=== PATIENT | female | born 1945 | race Caucasian/White ===

== ENCOUNTER 2020-08-08 11:23 | Inpatient (IN) | payer MEDICARE, MEDICAID, SELFPAY ==
[2020-08-08] VITALS (9 sets, daily range): BP systolic 103–146; BP diastolic 50–79; PULSE 63–82; RESP 12–20; TEMP 34.3–36.9; O2SAT 80–100; BMI 28.8
--- NOTE | 2020-08-08 12:16 | ECG_ITS ---
Test Reason : WEAKNESS Blood Pressure : / mmHG Vent. Rate : 077 BPM Atrial Rate : 077 BPM P-R Int : 182 ms QRS Dur : 098 ms QT Int : 374 ms P-R-T Axes : 043 027 086 degrees QTc Int : 423 ms Normal sinus rhythm Nonspecific ST and T wave abnormality Abnormal ECG When compared with ECG of 12-MAY-2020 12:29, No significant change was found Referred By: Kinza Macias Electronically Signed By:SKY REAVES MD
--- NOTE | 2020-08-08 12:16 | XR_ITS ---
EXAMINATION: XR CHEST CLINICAL INFORMATION: Hypoxia COMPARISON: None TECHNIQUE: Frontal view of the chest was obtained. FINDINGS: The patient is slightly rotated into a left posterior oblique position. Lungs are hypoexpanded. There appears to be crowding of bronchovascular structures in both lungs. This interferes with evaluation of the interstitium. No overt interstitial abnormality. No consolidation, pleural effusion or pneumothorax. Cardiac silhouette is normal in size. Bones appear to be diffusely osteopenic. There is dextrocurvature of the thoracic spine. IMPRESSION: * Lungs are hypoinflated. * No evidence of pneumonia or congestive heart failure. * The pulmonary interstitium is suboptimally evaluated due to the degree of hypoinflation.
--- NOTE | 2020-08-08 12:16 | CT_ITS ---
EXAMINATION: CT HEAD WITHOUT CONTRAST CLINICAL INFORMATION: Altered mental status. Swelling. Difficulty eating. COMPARISON: None TECHNIQUE: Contiguous axial imaging was performed from the skull base to vertex without intravenous administration of contrast. This CT examination was performed using dose optimization techniques as appropriate, variously including the following: *Automated exposure control *Adjustment of mA and/or kV according to patient size (this includes techniques or standardized protocols for targeted exams where dose is matched to indication/reason for exam; i.e. extremities or head) *Use of iterative reconstruction technique DLP: 696 mGy-cm NOTE: This examination is not performed under the stroke protocol. FINDINGS: Atherosclerotic calcification of cavernous carotid arteries. No intracranial hemorrhage, extra-axial fluid collection, focal mass effect or midline shift. The bryant-white matter differentiation is maintained. No evidence of an acute major vascular territory infarction. 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 Mild atrophy of cerebral hemispheres is associated with commensurate prominence of the ventricles and sulci. No hydrocephalus. No acute abnormality involving the brainstem or cerebellar hemispheres. The cerebellar tonsils are in normal position. The calvarium is intact and the visualized paranasal sinuses are well aerated. Minimal left mastoid effusion. Temporomandibular joints are unremarkable. Lenses have been extracted from the globes of each orbit. IMPRESSION: * No hemorrhage or other acute intracranial pathology. * There is relatively diffuse hypoattenuation of supratentorial white matter, likely sequela of chronic, severe microangiopathy.
--- NOTE | 2020-08-08 12:24 | ED_ITS ---
HPI - General Adult General Chief complaint: General Medical Stated complaint: WEAKNESS Time Seen by Provider: 08/08/20 12:03 Source: other (caregiver) Mode of arrival: wheelchair History of Present Illness HPI narrative: 75-year-old female with a past medical history of DM, leukopenia, thrombocytopenia, COPD, cognitive impairment, GERD, pressure ulcer, chronic UTIs, [facility] since 7:15 a.m. with right-sided facial droop, difficulty swallowing / handling pills, and the lethargy. reportedly at baseline patient is interactive, confused, wheels herself around in wheelchair. Today not conversational/ speaking, staring off into space. Per caregiver from [facility] patient had similar episode last week where she was admitted to [facility], noted to be hypoxic for unknown reasons , and was at baseline a [facility] x1 week until today. Denies fever, nausea/vomiting, diarrhea History unobtainable from patient due to AMS Onset (ago): hour(s) Related Data Allergies Allergy/AdvReac Type Severity Reaction Status Date / Time No Known Allergies Allergy Unverified 07/15/20 19:51 [No Known Allergies*] Review of Systems Review of Systems: ROS unable to be obtained due to altered mental status Yes all other systems are reviewed and are negative PMFSH Past Medical History Source: old records reviewed Medical History (Updated 08/08/20 @ 12:10 by Simone Stokes) Diabetes 1.5, managed as type 2 High cholesterol TBI (traumatic brain injury) Ulcer, pressure Social History Social History Advance Directives: No Advance Directives Information Provided: Yes Physical Exam Vital Signs: Vital Signs: Vital Signs Temp Pulse Resp BP Pulse Ox 08/08/20 15:47 72 12 111/76 100 08/08/20 12:22 68 98 08/08/20 12:00 98.5 F 82 16 117/73 91 L Body Mass Index 28.8 Const: Other: uncooperative General: lethargic Orientation/consciousness: oriented to person and lethargic Limitations: altered mental status HENMT: Head: Yes normal to inspection Ears: hearing grossly normal bilaterally General nose exam: Normal external nose present Face and sinus: Yes normal facial exam Eyes: Other: unable to open the patient's eyes Neck: Neck: Yes normal visual inspection Resp: Effort & Inspection: normal respiratory effort and no stridor Auscultation: crackles ( bibasilar) Cardio: Rate: regular rate Heart sounds: S1 normal heart sound present and S2 normal heart sound present Peripheral pulses: Peripheral pulses 2+ throughout GI: Inspection: Yes normal to inspection Palpation (GI): Soft to palpation, Tenderness to palpation present (GI) in the LLQ, no guarding and not rigid Skin: Other: clean pressure ulcer noted to right heel. No surrounding cellulitis, fluctuance or induration Neuro: Other: does not follow all commands General: oriented to person and moves all extremities Gait exam (Neuro): Other gait observations present Motor exam (neuro): normal tone Extrem: General: Yes normal to inspection Course Course Course Narrative: -1323-- CBC at baseline, troponin 5.7> will obtain 3hr repeat -1404-- CXR showing hypoinflated lungs. No evidence of pneumonia or CHF -Lactate 1.8 - head CT without hemorrhage or acute intracranial pathology. - respiratory viral panel negative -1452-- obtain records from [facility]: Patient had brain MRI without acute findings. Valproic acid level was noted to be low. They question to if patient's presentation was possible postictal state versus a Remy's paralysis >> patient satting 94-95% on 2 L nasal cannula, due to hypoxia an unknown source of AMS will obtain CTA to rule out PE prior to admission - CTA without evidence of PE. Bilateral lower lobe bronchial wall thickening. Bibasilar dependent atelectasis. T9 compression fracture - UA with RBCs/not infected. Plan to admit for AMS Medical Decision Making [facility] Narrative Medical decision making narrative: 75-year-old female with a past medical history of DM, leukopenia, thrombocytopenia, COPD, cognitive impairment, GERD, pressure ulcer, chronic UTIs, [facility] since 7:15 a.m. with right-sided facial droop, difficulty swallowing / handling pills, and the lethargy. on exam satting 91% on room air, in no respiratory distress, bibasilar crackles noted, not following commands /lethargic. Concern for CVA vs infectious/metabolic etiology including viral syndrome / COVID-19 vs UTI. Rule out intra-abdominal process. lower concern for ACS low concern for severe sepsis at this time Plan: EKG, labs, UA, CXR, head CT, respiratory panel, anticipated admission Lab Data Result diagrams: 08/08/20 12:37 08/08/20 12:37 Labs: Lab Results 08/08/20 08/08/20 08/08/20 Range/Units 12:37 12:37 12:37 WBC 3.6 L (4.8-10.8) X10*3/uL RBC 3.46 L (4.20-5.50) X10*6/uL Hgb 10.9 L (12.0-16.0) g/dl Hct 36.1 L (37-47) % MCV 104.3 H (80-98) fL MCH 31.5 (27.0-33.0) pg MCHC 30.2 L (31.0-35.0) g/dl RDW 15.3 (11.0-16.0) % Plt Count 96 L (160-400) X10*3/uL MPV 10.8 (9.4-12.3) fL Immature Gran % (Auto) 1.1 H (0.0-0.4) % Neut % (Auto) 48.1 (45-73) % Lymph % (Auto) 37.5 (20-40) % [place] % (Auto) 9.9 (2-11) % Eos % (Auto) 3.1 (0-4) % Baso % (Auto) 0.3 (0-2) % Lymph # (Auto) 1.3 (1.2-4.9) X10*3/uL [place] # (Auto) 0.4 (0.1-1.2) X10*3/uL Eos # (Auto) 0.1 (0.0-0.4) X10*3/uL Baso # (Auto) 0.0 (0.0-0.2) X10*3/uL Abs Immat Gran (auto) 0.04 H (0.00-0.03) X10*3/uL Absolute Neuts (auto) 1.7 L (2.0-8.3) X10*3/uL Absolute Nucleated RBC 0.020 H (0.0-0.012) X10*3/uL Nucleated RBC % (auto) 0.6 H (0.0-0.2) /100WBC Smear Tech's Comments Not Reportable PT 11.9 (10.8-13.0) SEC INR 1.0 (0.9-1.1) Sodium 139 (135-145) mmol/L Potassium 5.2 H (3.3-5.1) mmol/l Chloride 102 (96-108) mmol/L Carbon Dioxide 28 (22-29) mmol/L Anion Gap 14 (12-20) BUN 15 (9-16) mg/dL Creatinine 0.97 (0.5-1.4) mg/dL Estim Creat Clear Calc 49.3 Estimated GFR 56 Random Glucose 120 H (60-115) mg/dL Lactic Acid (0.5-2.0) mmol/L Calcium 8.7 (8.4-10.2) mg/dL Magnesium 2.2 (1.6-2.6) mg/dL Ferritin 25 (10-250) ng/mL Total Bilirubin 0.3 (0.0-1.0) mg/dL Direct Bilirubin < 0.2 (0.0-0.5) mg/dL AST 22 (5-31) U/L ALT 20 (0-31) U/L Alkaline Phosphatase 92 (39-117) U/L Lactate Dehydrogenase 214 (122-220) U/L Troponin I High Sens (<3.5-17.0) ng/L B-Natriuretic Peptide (<100) pg/mL Total Protein 7.2 (6.5-8.0) g/dL Albumin 3.7 (3.5-5.0) g/dL Lipase 62 (8-78) U/L Urine Color Urine Appearance Urine pH (5.0-8.0) Ur Specific [place] (1.005-1.025) Urine Protein (NEG-TRACE) MG/DL Urine Glucose (UA) (NEG) MG/DL Urine Ketones (NEG) MG/DL Urine Blood (NEG) Urine Nitrite (NEG) Ur Leukocyte Esterase (NEG) Urine RBC (0) /HPF Urine WBC (0-4) /HPF Ur Squamous Epith Cells /LPF Urine Bacteria /LPF Respiratory Panel Killian Adenovirus (Rapid PCR) (Not Detect.) B.pert (TEM-PCR) (Not Detect.) B.parapertussis DNA PCR (Not Detect.) C. pneumoniae DNA (PCR) (Not Detect.) Coronavirus OC43 (PCR) (Not Detect.) Coronavirus HKU1 (PCR) (Not Detect.) Coronavirus 229E (PCR) (Not Detect.) Coronavirus NL63 (PCR) (Not Detect.) Human Metapneumovir PCR (Not Detect.) Influenza A (RT-PCR) (Not Detect.) Influenza B (RT-PCR) (Not Detect.) M. pneumoniae (PCR) (Not Detect.) Parainfluenza 1 (PCR) (Not Detect.) Parainfluenza 2 (PCR) (Not Detect.) Parainfluenza 3 (PCR) (Not Detect.) Parainfluenza 4 (PCR) (Not Detect.) RSV (PCR) (Not Detect.) Entero/Rhino (PCR) (Not Detect.) SARS-CoV-2 RNA (RT-PCR) (Not Detect.) 08/08/20 08/08/20 08/08/20 Range/Units 12:37 12:44 13:03 WBC (4.8-10.8) X10*3/uL RBC (4.20-5.50) X10*6/uL Hgb (12.0-16.0) g/dl Hct (37-47) % MCV (80-98) fL MCH (27.0-33.0) pg MCHC (31.0-35.0) g/dl RDW (11.0-16.0) % Plt Count (160-400) X10*3/uL MPV (9.4-12.3) fL Immature Gran % (Auto) (0.0-0.4) % Neut % (Auto) (45-73) % Lymph % (Auto) (20-40) % [place] % (Auto) (2-11) % Eos % (Auto) (0-4) % Baso % (Auto) (0-2) % Lymph # (Auto) (1.2-4.9) X10*3/uL [place] # (Auto) (0.1-1.2) X10*3/uL Eos # (Auto) (0.0-0.4) X10*3/uL Baso # (Auto) (0.0-0.2) X10*3/uL Abs Immat Gran (auto) (0.00-0.03) X10*3/uL Absolute Neuts (auto) (2.0-8.3) X10*3/uL Absolute Nucleated RBC (0.0-0.012) X10*3/uL Nucleated RBC % (auto) (0.0-0.2) /100WBC Smear Tech's Comments PT (10.8-13.0) SEC INR (0.9-1.1) Sodium (135-145) mmol/L Potassium (3.3-5.1) mmol/l Chloride (96-108) mmol/L Carbon Dioxide (22-29) mmol/L Anion Gap (12-20) BUN (9-16) mg/dL Creatinine (0.5-1.4) mg/dL Estim Creat Clear Calc Estimated GFR Random Glucose (60-115) mg/dL Lactic Acid 1.8 (0.5-2.0) mmol/L Calcium (8.4-10.2) mg/dL Magnesium (1.6-2.6) mg/dL Ferritin (10-250) ng/mL Total Bilirubin (0.0-1.0) mg/dL Direct Bilirubin (0.0-0.5) mg/dL AST (5-31) U/L ALT (0-31) U/L Alkaline Phosphatase (39-117) U/L Lactate Dehydrogenase (122-220) U/L Troponin I High Sens 5.7 (<3.5-17.0) ng/L B-Natriuretic Peptide 40 (<100) pg/mL Total Protein (6.5-8.0) g/dL Albumin (3.5-5.0) g/dL Lipase (8-78) U/L Urine Color Urine Appearance Urine pH (5.0-8.0) Ur Specific [place] (1.005-1.025) Urine Protein (NEG-TRACE) MG/DL Urine Glucose (UA) (NEG) MG/DL Urine Ketones (NEG) MG/DL Urine Blood (NEG) Urine Nitrite (NEG) Ur Leukocyte Esterase (NEG) Urine RBC (0) /HPF Urine WBC (0-4) /HPF Ur Squamous Epith Cells /LPF Urine Bacteria /LPF Respiratory Panel Killian See Note Adenovirus (Rapid PCR) Not Detected (Not Detect.) B.pert (TEM-PCR) Not Detected (Not Detect.) B.parapertussis DNA PCR Not Detected (Not Detect.) C. pneumoniae DNA (PCR) Not Detected (Not Detect.) Coronavirus OC43 (PCR) Not Detected (Not Detect.) Coronavirus HKU1 (PCR) Not Detected (Not Detect.) Coronavirus 229E (PCR) Not Detected (Not Detect.) Coronavirus NL63 (PCR) Not Detected (Not Detect.) Human Metapneumovir PCR Not Detected (Not Detect.) Influenza A (RT-PCR) Not Detected (Not Detect.) Influenza B (RT-PCR) Not Detected (Not Detect.) M. pneumoniae (PCR) Not Detected (Not Detect.) Parainfluenza 1 (PCR) Not Detected (Not Detect.) Parainfluenza 2 (PCR) Not Detected (Not Detect.) Parainfluenza 3 (PCR) Not Detected (Not Detect.) Parainfluenza 4 (PCR) Not Detected (Not Detect.) RSV (PCR) Not Detected (Not Detect.) Entero/Rhino (PCR) Not Detected (Not Detect.) SARS-CoV-2 RNA (RT-PCR) Not Detected (Not Detect.) 08/08/20 08/08/20 Range/Units 15:37 16:22 WBC (4.8-10.8) X10*3/uL RBC (4.20-5.50) X10*6/uL Hgb (12.0-16.0) g/dl Hct (37-47) % MCV (80-98) fL MCH (27.0-33.0) pg MCHC (31.0-35.0) g/dl RDW (11.0-16.0) % Plt Count (160-400) X10*3/uL MPV (9.4-12.3) fL Immature Gran % (Auto) (0.0-0.4) % Neut % (Auto) (45-73) % Lymph % (Auto) (20-40) % [place] % (Auto) (2-11) % Eos % (Auto) (0-4) % Baso % (Auto) (0-2) % Lymph # (Auto) (1.2-4.9) X10*3/uL [place] # (Auto) (0.1-1.2) X10*3/uL Eos # (Auto) (0.0-0.4) X10*3/uL Baso # (Auto) (0.0-0.2) X10*3/uL Abs Immat Gran (auto) (0.00-0.03) X10*3/uL Absolute Neuts (auto) (2.0-8.3) X10*3/uL Absolute Nucleated RBC (0.0-0.012) X10*3/uL Nucleated RBC % (auto) (0.0-0.2) /100WBC Smear Tech's Comments PT (10.8-13.0) SEC INR (0.9-1.1) Sodium (135-145) mmol/L Potassium (3.3-5.1) mmol/l Chloride (96-108) mmol/L Carbon Dioxide (22-29) mmol/L Anion Gap (12-20) BUN (9-16) mg/dL Creatinine (0.5-1.4) mg/dL Estim Creat Clear Calc Estimated GFR Random Glucose (60-115) mg/dL Lactic Acid (0.5-2.0) mmol/L Calcium (8.4-10.2) mg/dL Magnesium (1.6-2.6) mg/dL Ferritin (10-250) ng/mL Total Bilirubin (0.0-1.0) mg/dL Direct Bilirubin (0.0-0.5) mg/dL AST (5-31) U/L ALT (0-31) U/L Alkaline Phosphatase (39-117) U/L Lactate Dehydrogenase (122-220) U/L Troponin I High Sens 5.9 (<3.5-17.0) ng/L B-Natriuretic Peptide (<100) pg/mL Total Protein (6.5-8.0) g/dL Albumin (3.5-5.0) g/dL Lipase (8-78) U/L Urine Color YELLOW Urine Appearance HAZY Urine pH 7.5 (5.0-8.0) Ur Specific [place] 1.010 (1.005-1.025) Urine Protein NEG (NEG-TRACE) MG/DL Urine Glucose (UA) NEG (NEG) MG/DL Urine Ketones NEG (NEG) MG/DL Urine Blood 3+ H (NEG) Urine Nitrite NEG (NEG) Ur Leukocyte Esterase NEG (NEG) Urine RBC 30-49 H (0) /HPF Urine WBC 0 (0-4) /HPF Ur Squamous Epith Cells TRACE /LPF Urine Bacteria NONE /LPF Respiratory Panel Killian Adenovirus (Rapid PCR) (Not Detect.) B.pert (TEM-PCR) (Not Detect.) B.parapertussis DNA PCR (Not Detect.) C. pneumoniae DNA (PCR) (Not Detect.) Coronavirus OC43 (PCR) (Not Detect.) Coronavirus HKU1 (PCR) (Not Detect.) Coronavirus 229E (PCR) (Not Detect.) Coronavirus NL63 (PCR) (Not Detect.) Human Metapneumovir PCR (Not Detect.) Influenza A (RT-PCR) (Not Detect.) Influenza B (RT-PCR) (Not Detect.) M. pneumoniae (PCR) (Not Detect.) Parainfluenza 1 (PCR) (Not Detect.) Parainfluenza 2 (PCR) (Not Detect.) Parainfluenza 3 (PCR) (Not Detect.) Parainfluenza 4 (PCR) (Not Detect.) RSV (PCR) (Not Detect.) Entero/Rhino (PCR) (Not Detect.) SARS-CoV-2 RNA (RT-PCR) (Not Detect.) ECG Data Attestation: I personally reviewed and interpreted this ECG as follows: Interpretation: normal sinus rhythm. Rate 77. No STEMI
--- NOTE | 2020-08-08 12:42 | PC.NURSE ---
pt placed on 2 l o2, RA sat was 89%. shortly after o2 applied pt became more alert but still not at baseline per wild animal caretaker at bedside. o2 sat now 100%. labs drawn and sent.
[2020-08-08 12:44] LABS: Basophils Percent Auto 0.3 % (0-2); Eosinophils Absolute Auto 0.1 X10*3/uL (0.0-0.4); MANUAL DIFF FLAG SCAN; PLT CLUMP 1; SCAN SMEAR FLAG 1
[2020-08-08 12:45] LABS: Eosinophils Percent Auto 3.1 % (0-4); Hematocrit 36.1 % (37-47); Hemoglobin 10.9 g/dl (12.0-16.0); Imm Gran Abs Auto 0.04 X10*3/uL (0.00-0.03); Imm Gran Pct Auto 1.1 % (0.0-0.4); Lymphocytes Absolute Auto 1.3 X10*3/uL (1.2-4.9); Lymphocytes Percent Auto 37.5 % (20-40); Mean Corpuscular HGB Conc 30.2 g/dl (31.0-35.0); Mean Corpuscular Hemoglobin 31.5 pg (27.0-33.0); Mean Corpuscular Volume 104.3 fL (80-98); Mean Platelet Volume 10.8 fL (9.4-12.3); Monocytes Absolute Auto 0.4 X10*3/uL (0.1-1.2); Monocytes Percent Auto 9.9 % (2-11); NRBC Pct Auto 0.6 /100WBC (0.0-0.2); Neutrophils Absolute Auto 1.7 X10*3/uL (2.0-8.3); Neutrophils Percent Auto 48.1 % (45-73); Red Blood Count 3.46 X10*6/uL (4.20-5.50); Red Cell Distribution Width 15.3 % (11.0-16.0); White Blood Count 3.6 X10*3/uL (4.8-10.8)
[2020-08-08 12:46] LABS: Platelet Count 96 X10*3/uL (160-400)
[2020-08-08 13:02] LABS: Lactic Acid 1.8 mmol/L (0.5-2.0)
[2020-08-08 13:05] LABS: Prothrombin Time 11.9 SEC (10.8-13.0)
[2020-08-08 13:08] LABS: Alanine Aminotransferase 20 U/L (0-31); Albumin Level 3.7 g/dL (3.5-5.0); Alkaline Phosphatase 92 U/L (39-117); Aspartate Amino Transferase 22 U/L (5-31); Bilirubin Direct < 0.2 mg/dL (0.0-0.5); Bilirubin Total 0.3 mg/dL (0.0-1.0); Blood Urea Nitrogen 15 mg/dL (9-16); Calcium 8.7 mg/dL (8.4-10.2); Creatinine Clr Calc Pharmacy 49.3; Estimated Glomerular Filt Rate 56; Glucose Random 120 mg/dL (60-115); Lipase 62 U/L (8-78); Magnesium 2.2 mg/dL (1.6-2.6); Total Protein 7.2 g/dL (6.5-8.0)
[2020-08-08 13:22] LABS: B Type Natriuretic Peptide 40 pg/mL (<100); Troponin-I High Sensitivity 5.7 ng/L (<3.5-17.0)
[2020-08-08 13:25] LABS: Adenovirus PCR Not Detected (Not Detect.); Bordetella parapertussis PCR Not Detected (Not Detect.); Bordetella pertussis PCR Not Detected (Not Detect.); Chlamydia pneumoniae PCR Not Detected (Not Detect.); Coronavirus 229E PCR Not Detected (Not Detect.); Coronavirus HKU1 PCR Not Detected (Not Detect.); Coronavirus NL63 PCR Not Detected (Not Detect.); Coronavirus OC43 PCR Not Detected (Not Detect.); Human metapneumovirus PCR Not Detected (Not Detect.); Influenza A PCR Not Detected (Not Detect.); Influenza B PCR Not Detected (Not Detect.); Mycoplasma pneumoniae PCR Not Detected (Not Detect.); Parainfluenza 1 PCR Not Detected (Not Detect.); Parainfluenza 2 PCR Not Detected (Not Detect.); Parainfluenza 3 PCR Not Detected (Not Detect.); Parainfluenza 4 PCR Not Detected (Not Detect.); RSV PCR Not Detected (Not Detect.); Rhino/Enterovirus PCR Not Detected (Not Detect.); SARS-CoV-2 PCR Not Detected (Not Detect.)
[2020-08-08 13:26] LABS: Ferritin 25 ng/mL (10-250)
[2020-08-08 13:30] LABS: Anion Gap 14 (12-20); Carbon Dioxide 28 mmol/L (22-29); Chloride 102 mmol/L (96-108); Lactate Dehydrogenase 214 U/L (122-220); Potassium 5.2 mmol/l (3.3-5.1); Sodium 139 mmol/L (135-145)
[2020-08-08] MEDS: 0.9 % Sodium Chloride 1,000 ML 999 ML IVCONT (14:19)
--- NOTE | 2020-08-08 14:59 | CT_ITS ---
EXAMINATION: CT PULMONARY EMBOLISM STUDY CLINICAL INFORMATION: Hypoxia. COMPARISON: Same day chest radiograph. TECHNIQUE: Contiguous helical images of the chest were obtained following the administration of IV contrast. Multiplanar reconstructions were performed. MIPS were obtained and reviewed. DLP: 287 mGy-cm. CONTRAST: 63 cc of Omnipaque 350 were administered without incident. FINDINGS: The heart is of normal size. There is no pericardial effusion. The great vessels are unremarkable. Specifically, there is no pulmonary arterial filling defect. There is no CT evidence for pulmonary embolism. There are no chest wall masses. Review of lung windows demonstrates that there are neither pleural effusions nor pneumothoraces. There are no consolidations. There is dependent bibasilar atelectasis. There is bronchial wall thickening within the lower lobes. Throughout both lungs, there is mild interstitial prominence. There are no pulmonary parenchymal nodules. Limited evaluation of the upper abdomen demonstrates that the liver is of normal size and attenuation without focal lesions. Normal adrenal glands are identified. There is a compression fracture T9. IMPRESSION: No CT evidence for pulmonary embolism. Bilateral lower lobe bronchial wall thickening. Bibasilar dependent atelectasis. T9 compression fracture. Automated exposure control (Care Dose) Adjustment of the mA and/or kv according to patient size (this includes techniques or standardized protocols for targeted exams where dose is matched to indication / reason for exam; i.e. extremities or head).
[2020-08-08 16:19] LABS: Troponin-I High Sensitivity 5.9 ng/L (<3.5-17.0)
[2020-08-08 16:41] LABS: Glucose Urine UA NEG (NEG); Leukocyte Esterase Urine NEG (NEG); Nitrite Urine NEG (NEG); PH 7.5 (5.0-8.0); Urine Blood 3+ (NEG); Urine Ketones NEG (NEG); Urine Protein NEG (NEG-TRACE)
[2020-08-08 16:43] LABS: Appearance Urine HAZY; Color Urine YELLOW
[2020-08-08 16:54] LABS: WBC Urine 0 /HPF (0-4)
[2020-08-08 16:55] LABS: RBC Urine 30-49 /HPF (0); Squamous Epithelial Cell Urine TRACE /LPF
[2020-08-08] MEDS: iohexoL 350 MG/ML 100 ML INFUS..BTL IV (17:02)
[2020-08-08] MEDS: Albuterol/Iprat 2.5/0.5MG 3 ML AMPUL.NEB INHALE (17:30)
--- NOTE | 2020-08-08 18:29 | PM.IMHP ---
History of Present Illness Date of Service: 08/08/20 <Gabriella Gutierrez NP - Last Filed: 08/08/20 20:17> Chief Complaint: unresponsiveness <Gabriella Gutierrez NP - Last Filed: 08/08/20 20:17> 75-year-old woman presenting from a [facility] after being found to be unresponsive. She was recently discharged from [facility] on July 28. She had presented there initially with decreased responsiveness. 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 Prior to that admission she have resented to [place] with right-sided facial droop and drooling. She had multiple diagnostic studies done during her stay 1 which was not MRI which was negative for any acute or subacute infarction, mass, hemorrhage or other acute intracranial abnormality. She did have some chronic volume loss. She seemed to improve enough that she could be discharged back to her [facility]. According to the group billing coordinator that was with the patient today she presented with very similar symptoms. During the interview patient was unable to give any information however with aggressive stimulation she would open her eyes. Vital signs have been stable. Chest CT was negative for pulmonary embolus or consolidation. Brain CT was negative for any acute abnormality. Patient received albuterol and 1 L of IV fluid, shewill be admitted for further management and treatment of acute encephalopathy. <Gabriella Gutierrez NP - Last Filed: 08/08/20 20:17> Review of Systems Review of Systems: Yes Unobtainable due to mental condition ( Acute encephalopathy) <Gabriella Gutierrez NP - Last Filed: 08/08/20 20:17> [facility] Medical History: Medical History (Updated 08/10/20 @ 17:50 by Lokesh Menezes MD) CKD (chronic kidney disease) COPD (chronic obstructive pulmonary disease) Diabetes 1.5, managed as type 2 GERD (gastroesophageal reflux disease) High cholesterol Hypertension Schizophrenia TBI (traumatic brain injury) Ulcer, pressure <JULIETA Douglas Last Filed: 08/08/20 20:17> Functional capacity: wheelchair bound <Gabriella Gutierrez NP - Last Filed: 08/08/20 20:17> Pertinent family history: unknown, acute encephalopathy <Gabriella Gutierrez NP - Last Filed: 08/08/20 20:17> Surgical History: Surgical History (Updated 08/08/20 @ 19:54 by Gabriella Gutierrez NP) H/O cataract removal with insertion of prosthetic lens <Gabriella Gutierrez NP - Last Filed: 08/08/20 20:17> Social History: Social History Household Members: Other Household Members Other:: [facility] Housing: Other Housing Other:: [facility]cf Smoking Status: Never smoker Use of substances other than those prescribed or required for medical reasons: Unable to respond Currently Displaying Signs/Symptoms of Drug Intoxication Withdrawal: No Advance Directives: No Advance Directives Information Provided: Yes Do you have thoughts of harming others: None Do you have a plan to hurt others: No Plan Recently lost weight without trying: No service: No <Gabriella Gutierrez NP - Last Filed: 08/08/20 20:17> Meds Allergies/Adverse reactions: Allergies Allergy/AdvReac Type Severity Reaction Status Date / Time No Known Allergies Allergy Unverified 07/15/20 19:51 [No Known Allergies*] <Gabriella Gutierrez NP - Last Filed: 08/08/20 20:17> Home medications: Home Medications Medication Instructions Recorded Confirmed Type Depakote Sprinkles 1,000 mg PO BEDTIME 08/08/20 08/08/20 History Santyl TOPICAL BEDTIME 08/08/20 History diclofenac sodium 1 tab PO BID 08/08/20 08/08/20 History docusate sodium [Docu] PO BID 08/08/20 History erythromycin OPHTHALMIC (EYE) 08/08/20 History glipizide 1 tab PO DAILY 08/08/20 08/08/20 History magnesium hydroxide [Milk Of PO PRN 08/08/20 History Magnesia Concentrated] metformin 1 tab PO DAILY 08/08/20 08/08/20 History olopatadine 1 drp OPHTHALMIC (EYE) BID 08/08/20 08/08/20 History prednisolone acetate drp OPHTHALMIC (EYE) DAILY 08/08/20 History risperidone mg PO BID 08/08/20 History sennosides [senna] mg PO BEDTIME 08/08/20 History simvastatin 1 tab PO BEDTIME 08/08/20 08/08/20 History trazodone 12.5 mg PO PRN 08/08/20 History <Gabriella Gutierrez NP - Last Filed: 08/08/20 20:17> Physical Exam Vital Signs and Narrative: Vital Signs: Last Vital Signs Temp 98.5 F 08/08/20 12:00 Pulse 72 08/08/20 15:47 Resp 12 08/08/20 15:47 BP 111/76 08/08/20 15:47 Pulse Ox 100 08/08/20 15:47 Body Mass Index 28.8 <Gabriella Gutierrez NP - Last Filed: 08/08/20 20:17> Appearing in no acute distress head is normocephalic atraumatic eyes pupils are PERRLA sclera is anicteric mouth throat mucous membranes are intact and moist neck is supple no lymphadenopathy, no JVD noted lung sounds are clear to auscultation heart regular rate rhythm, clear S1, S2 positive bowel sounds, abdomen is soft neuro patient is sleeping, not responding, unable to perform an accurate cranial nerve examination. <Gabriella Gutierrez NP - Last Filed: 08/08/20 20:17> Results Labs Labs: Laboratory Tests 08/08/20 08/08/20 08/08/20 12:37 12:37 12:37 WBC 3.6 L RBC 3.46 L Hgb 10.9 L Hct 36.1 L MCV 104.3 H MCH 31.5 MCHC 30.2 L RDW 15.3 Plt Count 96 L MPV 10.8 Immature Gran % (Auto) 1.1 H Neut % (Auto) 48.1 Lymph % (Auto) 37.5 [place] % (Auto) 9.9 Eos % (Auto) 3.1 Baso % (Auto) 0.3 Lymph # (Auto) 1.3 [place] # (Auto) 0.4 Eos # (Auto) 0.1 Baso # (Auto) 0.0 Abs Immat Gran (auto) 0.04 H Absolute Neuts (auto) 1.7 L Absolute Nucleated RBC 0.020 H Nucleated RBC % (auto) 0.6 H Smear Tech's Comments Not Reportable PT 11.9 INR 1.0 Sodium 139 Potassium 5.2 H Chloride 102 Carbon Dioxide 28 Anion Gap 14 BUN 15 Creatinine 0.97 Estim Creat Clear Calc 49.3 Estimated GFR 56 Random Glucose 120 H Lactic Acid Calcium 8.7 Magnesium 2.2 Ferritin 25 Total Bilirubin 0.3 Direct Bilirubin < 0.2 AST 22 ALT 20 Alkaline Phosphatase 92 Lactate Dehydrogenase 214 Troponin I High Sens B-Natriuretic Peptide Total Protein 7.2 Albumin 3.7 Lipase 62 Urine Color Urine Appearance Urine pH Ur Specific [place] Urine Protein Urine Glucose (UA) Urine Ketones Urine Blood Urine Nitrite Ur Leukocyte Esterase Urine RBC Urine WBC Ur Squamous Epith Cells Urine Bacteria Respiratory Panel [place] Adenovirus (Rapid PCR) B.pert (TEM-PCR) B.parapertussis DNA PCR C. pneumoniae DNA (PCR) Coronavirus OC43 (PCR) Coronavirus HKU1 (PCR) Coronavirus 229E (PCR) Coronavirus NL63 (PCR) Human Metapneumovir PCR Influenza A (RT-PCR) Influenza B (RT-PCR) M. pneumoniae (PCR) Parainfluenza 1 (PCR) Parainfluenza 2 (PCR) Parainfluenza 3 (PCR) Parainfluenza 4 (PCR) RSV (PCR) Entero/Rhino (PCR) SARS-CoV-2 RNA (RT-PCR) 08/08/20 08/08/20 08/08/20 12:37 12:44 13:03 WBC RBC Hgb Hct MCV MCH MCHC RDW Plt Count MPV Immature Gran % (Auto) Neut % (Auto) Lymph % (Auto) [place] % (Auto) Eos % (Auto) Baso % (Auto) Lymph # (Auto) [place] # (Auto) Eos # (Auto) Baso # (Auto) Abs Immat Gran (auto) Absolute Neuts (auto) Absolute Nucleated RBC Nucleated RBC % (auto) Smear Tech's Comments PT INR Sodium Potassium Chloride Carbon Dioxide Anion Gap BUN Creatinine Estim Creat Clear Calc Estimated GFR Random Glucose Lactic Acid 1.8 Calcium Magnesium Ferritin Total Bilirubin Direct Bilirubin AST ALT Alkaline Phosphatase Lactate Dehydrogenase Troponin I High Sens 5.7 B-Natriuretic Peptide 40 Total Protein Albumin Lipase Urine Color Urine Appearance Urine pH Ur Specific [place] Urine Protein Urine Glucose (UA) Urine Ketones Urine Blood Urine Nitrite Ur Leukocyte Esterase Urine RBC Urine WBC Ur Squamous Epith Cells Urine Bacteria Respiratory Panel [place] See Note Adenovirus (Rapid PCR) Not Detected B.pert (TEM-PCR) Not Detected B.parapertussis DNA PCR Not Detected C. pneumoniae DNA (PCR) Not Detected Coronavirus OC43 (PCR) Not Detected Coronavirus HKU1 (PCR) Not Detected Coronavirus 229E (PCR) Not Detected Coronavirus NL63 (PCR) Not Detected Human Metapneumovir PCR Not Detected Influenza A (RT-PCR) Not Detected Influenza B (RT-PCR) Not Detected M. pneumoniae (PCR) Not Detected Parainfluenza 1 (PCR) Not Detected Parainfluenza 2 (PCR) Not Detected Parainfluenza 3 (PCR) Not Detected Parainfluenza 4 (PCR) Not Detected RSV (PCR) Not Detected Entero/Rhino (PCR) Not Detected SARS-CoV-2 RNA (RT-PCR) Not Detected 08/08/20 08/08/20 15:37 16:22 WBC RBC Hgb Hct MCV MCH MCHC RDW Plt Count MPV Immature Gran % (Auto) Neut % (Auto) Lymph % (Auto) [place] % (Auto) Eos % (Auto) Baso % (Auto) Lymph # (Auto) [place] # (Auto) Eos # (Auto) Baso # (Auto) Abs Immat Gran (auto) Absolute Neuts (auto) Absolute Nucleated RBC Nucleated RBC % (auto) Smear Tech's Comments PT INR Sodium Potassium Chloride Carbon Dioxide Anion Gap BUN Creatinine Estim Creat Clear Calc Estimated GFR Random Glucose Lactic Acid Calcium Magnesium Ferritin Total Bilirubin Direct Bilirubin AST ALT Alkaline Phosphatase Lactate Dehydrogenase Troponin I High Sens 5.9 B-Natriuretic Peptide Total Protein Albumin Lipase Urine Color YELLOW Urine Appearance HAZY Urine pH 7.5 Ur Specific [place] 1.010 Urine Protein NEG Urine Glucose (UA) NEG Urine Ketones NEG Urine Blood 3+ H Urine Nitrite NEG Ur Leukocyte Esterase NEG Urine RBC 30-49 H Urine WBC 0 Ur Squamous Epith Cells TRACE Urine Bacteria NONE Respiratory Panel [place] Adenovirus (Rapid PCR) B.pert (TEM-PCR) B.parapertussis DNA PCR C. pneumoniae DNA (PCR) Coronavirus OC43 (PCR) Coronavirus HKU1 (PCR) Coronavirus 229E (PCR) Coronavirus NL63 (PCR) Human Metapneumovir PCR Influenza A (RT-PCR) Influenza B (RT-PCR) M. pneumoniae (PCR) Parainfluenza 1 (PCR) Parainfluenza 2 (PCR) Parainfluenza 3 (PCR) Parainfluenza 4 (PCR) RSV (PCR) Entero/Rhino (PCR) SARS-CoV-2 RNA (RT-PCR) <Gabriella Gutierrez NP - Last Filed: 08/08/20 20:17> Assessment and Plan (1) Acute encephalopathy: Status: Acute <Gabriella Guteirrez NP - Last Filed: 08/08/20 20:17> (2) Seizure disorder: Problem details: Possible seizure versus syncope <Gabriella Gutierrez NP - Last Filed: 08/08/20 20:17> Status: Acute <Gabriella Gutierrez NP - Last Filed: 08/08/20 20:17> (3) TBI (traumatic brain injury): Status: Acute <Gabriella Gutierrez NP - Last Filed: 08/08/20 20:17> (4) Diabetes 1.5, managed as type 2: Status: Acute <Gabriella Gutierrez NP - Last Filed: 08/08/20 20:17> (5) CKD (chronic kidney disease): Status: Inactive <Gabriella Gutierrez NP - Last Filed: 08/08/20 20:17> (6) GERD (gastroesophageal reflux disease): Status: Inactive <Gabriella Gutierrez NP - Last Filed: 08/08/20 20:17> (7) Schizophrenia: Status: Inactive <Gabriella Gutierrez NP - Last Filed: 08/08/20 20:17> (8) COPD (chronic obstructive pulmonary disease): Status: Inactive <Gabriella Gutierrez NP - Last Filed: 08/08/20 20:17> (9) Hypertension: Status: Inactive <Gabriella Gutierrez NP - Last Filed: 08/08/20 20:17> 75-year-old woman admitted with acute encephalopathy. At this time unknown etiology. Symptoms may be related to TIA versus seizure disorder versus medication related. Acute encephalopathy. We will monitor on telemetry, there was a question that this may be related to seizure versus TIA. During her stay at [facility] she had an MRI which was negative for stroke, she had similar symptoms therefore may be more unlikely related to TIA/stroke. Depakote level 58.1 on the lower side. Will discuss case with neurology. Neuro checks. History of seizure disorder /schizophrenia. Will place on seizure precautions, continue Depakote. Mild Hyperkalemia. Potassium 5.2. Follow BMP closely. Diabetes mellitus. Sliding scale, ADA diet, continue glipizide and metformin. Hyperlipidemia. Continue statin. History of CKD. Stable kidney function. Avoid nephrotoxins. Macrocytic anemia. No signs of bleeding. Follow H&H daily. Thrombocytopenia. Chronic anemia , chronic kidney disease. No signs of bleeding. Follow CBC daily. DVT prophylaxis with heparin. Discussed with Dr. Venegas Full code <Gabriella Gutierrez NP - Last Filed: 08/08/20 20:17>
--- NOTE | 2020-08-08 18:31 | P.EN_ITS ---
Event Note Event Note: Patient seen and examined. Case discussed with Gabriella Gutierrez NP. Agree with her history and physical. in brief, 75-year-old female who is a resident of a longterm and presents to the hospital with question seizures versus TIA/stroke symptoms. Patient is currently unable to give any history. Patient's longterm person bedside reports that this is much different from her baseline, however she does not know exactly what happened at the facility. She does endorse that about 1-2 weeks ago she was admitted to [facility] for was thought initially to be a stroke. Workup there was negative for CVA and patient was subsequently discharged home about 1 week back for at baseline. A/P 75 being admitted for acute encephalopathy -- had a recent admission to [facility] for similar -- stroke ruled out there. Will observe for now. Consult neurology. Monitor on tele. Remainder per H&P
[2020-08-08 18:47] LABS: Valproate 58.1 mcg/mL (50.0-100.0)
[2020-08-08 19:12] LABS: Procalcitonin < 0.05 ng/mL
--- NOTE | 2020-08-08 19:13 | PC.NURSE ---
called up to [facility] [place] [place]. Judy confirmed patient. karan grimes to take report
--- NOTE | 2020-08-08 20:10 | PC.NURSE ---
REPORT GIVEN TO [facility] COTTER ON FLOOR.
[2020-08-08 21:30] LABS: Glucose, Whole Blood 69 mg/dL (60-115)
--- NOTE | 2020-08-08 21:52 | PC.NURSE ---
pt from er to c, rectal temp 94.3. POC 69. Dr Casillas was notified warmikng blanket ordred to keep body tem >96 degrees of F. Dextrose 25 gram given IV. pt resting with eyes closed ,responds to tactaile stimuly
[2020-08-08] MEDS: Dextrose 5 % and Lactated Ring 1,000 ML 50 ML IVCONT (22:05)
[2020-08-08 22:15] LABS: Glucose, Whole Blood 209 mg/dL (60-115)
[2020-08-08] MEDS: 0.9 % Sodium Chloride Flush 3 ML SYRINGE IVFLUSH (23:46)
[2020-08-09] VITALS (11 sets, daily range): BP systolic 100–174; BP diastolic 63–78; PULSE 56–85; RESP 16–18; TEMP 35–37.1; O2SAT 93–99; BMI 28.8
--- NOTE | 2020-08-09 04:52 | PC.NURSE ---
CARE ASSUMED 23;15...REMAINS LETHARGIC...DOES NOT OPEN EYES OR FOLLOW COMMANDS..WEAKLY MOVES ARMS SPONTANEOUSLY...MANAGING SECRETIONS..BP/HR STABLE...WARMING BLANKET IN PLACE..RECTAL TEMP 12AM= 94.3--TEMPORAL TEMP 96.1....TEMP IMPROVING TO 97.5 PO..NSR HR 58-64..INCONTINANT URINE HS...PURWIK PLACED AND COLLECTING YELLOW URINE
[2020-08-09 07:08] LABS: Eosinophils Absolute Auto 0.1 X10*3/uL (0.0-0.4); Imm Gran Abs Auto 0.01 X10*3/uL (0.00-0.03); MANUAL DIFF FLAG SCAN; PLT CLUMP 1; Red Cell Distribution Width 15.3 % (11.0-16.0); SCAN SMEAR FLAG 1
[2020-08-09 07:10] LABS: Basophils Percent Auto 0.3 % (0-2); Eosinophils Percent Auto 3.1 % (0-4); Hematocrit 32.9 % (37-47); Hemoglobin 9.7 g/dl (12.0-16.0); Imm Gran Pct Auto 0.3 % (0.0-0.4); Lymphocytes Percent Auto 34.8 % (20-40); Mean Corpuscular HGB Conc 29.5 g/dl (31.0-35.0); Mean Corpuscular Volume 105.1 fL (80-98); Mean Platelet Volume 11.2 fL (9.4-12.3); Monocytes Absolute Auto 0.4 X10*3/uL (0.1-1.2); Monocytes Percent Auto 13.4 % (2-11); Neutrophils Absolute Auto 1.4 X10*3/uL (2.0-8.3); Neutrophils Percent Auto 48.1 % (45-73); Red Blood Count 3.13 X10*6/uL (4.20-5.50); White Blood Count 2.9 X10*3/uL (4.8-10.8)
[2020-08-09 07:24] LABS: Platelet Count 94 X10*3/uL (160-400)
[2020-08-09 07:25] LABS: Anion Gap 10 (12-20); Blood Urea Nitrogen 13 mg/dL (9-16); Calcium 8.3 mg/dL (8.4-10.2); Carbon Dioxide 30 mmol/L (22-29); Chloride 106 mmol/L (96-108); Creatinine Clr Calc Pharmacy 62.1; Estimated Glomerular Filt Rate > 60; Glucose Random 83 mg/dL (60-115); Potassium 4.8 mmol/l (3.3-5.1); Sodium 141 mmol/L (135-145)
[2020-08-09 07:38] LABS: Glucose, Whole Blood 95 mg/dL (60-115)
[2020-08-09 08:21] LABS: SLIDE REVIEW VERIFIED
[2020-08-09 12:40] LABS: TSH reflex Free T4 1.99 mIU/mL (0.32-4.0)
[2020-08-09 13:37] LABS: Glucose, Whole Blood 99 mg/dL (60-115)
[2020-08-09 15:58] LABS: Glucose, Whole Blood 109 mg/dL (60-115)
--- NOTE | 2020-08-09 16:39 | P.PNIM_ITS ---
Subjective Subjective Date of Service: 08/09/20 Interval History: seen and examined this Am overnight events reviwed patient became hypothermic this AM, shes more awake and alert -- knows her name and that shes in the hospital Review of Systems ROS unreliable Physical Exam Vital Signs: Vital Signs: Vital Signs Temp Pulse Resp BP Pulse Ox 08/09/20 15:14 97.6 F 63 18 138/68 98 08/09/20 11:19 98.8 F 85 16 150/78 H 94 08/09/20 07:20 95 F L 56 18 100/63 98 08/09/20 07:19 95.8 F L 56 18 100/63 97 08/09/20 03:31 97.5 F 73 18 117/74 99 08/09/20 03:25 97.5 F 73 18 117/74 99 08/09/20 01:41 97.0 F 60 16 08/09/20 00:00 96.1 F L 08/08/20 23:55 96.1 F L 63 20 103/50 L 98 08/08/20 22:26 93.7 F L 08/08/20 22:00 18 99 08/08/20 20:59 94.3 F L 68 18 146/79 H 100 08/08/20 20:00 18 100 08/08/20 19:14 68 16 80 L Body Mass Index 28.8 General - no acute distress, appears comfortable Cardiovascular - s1s2 Lungs - normal respiratory effort, clear to auscultation bilaterally, no wheezing Abdomen - soft, nontender, no rebound regarding Neuro - able to follow some basic commands -- moving all 4 limbs Objective Data Current Medications Generic Name Dose Route Start Last Admin Trade Name Luis PRN Reason Stop Dose Admin Acetaminophen 650 mg 08/08/20 21:07 Acetaminophen 325 Mg Tablet PO Q6H PRN Pain, Mild (Pain Scale 1-3) Atorvastatin Calcium 10 mg 08/09/20 21:00 Atorvastatin Calcium 10 Mg Tablet PO BEDTIME LISSA Diclofenac Sodium 50 mg 08/08/20 21:07 08/09/20 08:24 Diclofenac Sodium Delayed Rel 50 Mg Tablet.Dr JOE Not Given BID LISSA Divalproex Sodium 1,000 mg 08/09/20 21:00 Divalproex Sodium Sprinkles 125 Mg Cap. PO BEDTIME LISSA Docusate Sodium 100 mg 08/08/20 21:07 08/09/20 08:24 Docusate Sodium 100 Mg Capsule PO Not Given BID [facility] Glipizide 5 mg 08/09/20 09:00 08/09/20 08:24 Glipizide Xl 5 Mg Tab.Er.24 PO Not Given DAILY [facility] Dextrose/Lactated Ringer's 1,000 mls @ 50 mls/hr 08/08/20 21:45 08/08/20 22:05 D5lr IVCONT 50 mls/hr .Q20H [facility] Administration Insulin Human Lispro 0 unit 08/08/20 21:07 08/09/20 13:50 Insulin Lispro 100 Unit/Ml 3 Ml Vial SUBCUT Not Given QIDACHS [facility] Protocol Metformin HCl 500 mg 08/09/20 09:00 08/09/20 08:25 Metformin Hcl Er 500 Mg Tab.Er.24h PO Not Given DAILY [facility] Non-Formulary Medication 1 drop 08/08/20 21:07 Olopatadine EYE-BOTH BID [facility] Ondansetron HCl 4 mg 08/08/20 21:07 Ondansetron Hcl 4 Mg/2 Ml Vial IVPUSH Q8H PRN Nausea and Vomiting Pharmacy Consult 1 each 08/08/20 17:44 Consult Rx Perform Med Rec MISCELLANE ONCE PRN Consult order Sodium Chloride 3 ml 08/09/20 00:00 08/09/20 08:24 0.9 % Sodium Chloride Flush 3 Ml Syringe IVFLUSH Not Given QSHIFT [facility] Labs CBC & Chem 7: 08/09/20 05:42 08/09/20 05:42 Microbiology Microbiology Results: Microbiology 08/08/20 12:44 Blood - Venous Blood Culture - Preliminary No growth after 24 hours. 08/08/20 12:37 Blood - Venous Blood Culture - Preliminary No growth after 24 hours. Assessment and Plan (1) TBI (traumatic brain injury): Status: Acute (2) Acute encephalopathy: Status: Acute (3) Seizure disorder: Status: Acute Assessment and Plan: This is a 75 yo F from [facility] with cognitive impairment, previous CVA who was brought in from [facility] for unresponsiveness and ? facial droop which had resolved by the time she arrived to the ED. She was however every lethargic and minimally responsive and as such, she was admitted. 1. Acute Encephalopathy cause unclear, but question if post-ictal recent similar presentation at [facility], under werent MR there which did not show acute stroke appears to be more alert today and obeying some basic commands. Will await neuro input prior to further work up continue her baseline meds at this time speech eval -- keep npo until it improves 2. Hypothermia normothermic now, but overnight dipped into the 93-94 range. No foci of infection identified TSH nl ? if related to her meds vs DM (did have sugar drop a bit over night) vs meds monitor for now 3. DM hold oral meds hold sliding scale and observe contineu poc check a1c 4. ? Mood vs seizures continue depakote, changed to iv for now (250mg q6 hours as recommended by pharmacy) unclear the reason for this Full Code DVT pptx, naheed
[2020-08-09] MEDS: Valproic Acid (as Sodium Salt) 250 MG in Dextrose 5 % 50 ML 52.5 MG IV (18:52)
[2020-08-09] MEDS: Dextrose 5 % and Lactated Ring 1,000 ML 50 ML IVCONT (20:01)
[2020-08-09 20:59] LABS: Glucose, Whole Blood 93 mg/dL (60-115)
[2020-08-09] MEDS: Enoxaparin Sodium 40 MG/0.4 ML SYRINGE SUBCUT (22:12)
[2020-08-10] VITALS (8 sets, daily range): BP systolic 102–151; BP diastolic 65–87; PULSE 54–119; RESP 18–20; TEMP 35.6–37.2; O2SAT 97–100
[2020-08-10] MEDS: Valproic Acid (as Sodium Salt) 250 MG in Dextrose 5 % 50 ML 50 MG IV ×3 (00:13→18:03)
[2020-08-10] MEDS: 0.9 % Sodium Chloride Flush 3 ML SYRINGE IVFLUSH ×2 (00:13→14:30)
[2020-08-10] MEDS: Valproic Acid (as Sodium Salt) 250 MG in Dextrose 5 % 50 ML 52.5 MG IV ×2 (05:27→23:58)
[2020-08-10 06:00] LABS: Basophils Percent Auto 0.3 % (0-2); Imm Gran Abs Auto 0.01 X10*3/uL (0.00-0.03); Imm Gran Pct Auto 0.3 % (0.0-0.4); PLT CLUMP 1; Red Blood Count 3.35 X10*6/uL (4.20-5.50); Red Cell Distribution Width 15.1 % (11.0-16.0); SCAN SMEAR FLAG 1
[2020-08-10 06:01] LABS: Eosinophils Absolute Auto 0.1 X10*3/uL (0.0-0.4); Eosinophils Percent Auto 2.8 % (0-4); Hematocrit 35.3 % (37-47); Hemoglobin 10.5 g/dl (12.0-16.0); Lymphocytes Absolute Auto 1.3 X10*3/uL (1.2-4.9); Lymphocytes Percent Auto 39.6 % (20-40); Mean Corpuscular HGB Conc 29.7 g/dl (31.0-35.0); Mean Corpuscular Hemoglobin 31.3 pg (27.0-33.0); Mean Corpuscular Volume 105.4 fL (80-98); Mean Platelet Volume 10.9 fL (9.4-12.3); Monocytes Absolute Auto 0.4 X10*3/uL (0.1-1.2); Monocytes Percent Auto 11.1 % (2-11); Neutrophils Absolute Auto 1.5 X10*3/uL (2.0-8.3); Neutrophils Percent Auto 45.9 % (45-73); Platelet Count 90 X10*3/uL (160-400); White Blood Count 3.2 X10*3/uL (4.8-10.8)
[2020-08-10 06:07] LABS: MANUAL DIFF FLAG NO
[2020-08-10 06:31] LABS: Anion Gap 10 (12-20); Blood Urea Nitrogen 11 mg/dL (9-16); Calcium 8.5 mg/dL (8.4-10.2); Carbon Dioxide 28 mmol/L (22-29); Chloride 106 mmol/L (96-108); Creatinine Clr Calc Pharmacy 62.9; Estimated Glomerular Filt Rate > 60; Glucose Random 99 mg/dL (60-115); Potassium 4.4 mmol/l (3.3-5.1); Sodium 140 mmol/L (135-145)
[2020-08-10 07:30] LABS: Glucose, Whole Blood 105 mg/dL (60-115)
[2020-08-10 08:25] LABS: Estimated Average Glucose 140 mg/dL; Hemoglobin A1c % 6.5 %
[2020-08-10 11:51] LABS: Glucose, Whole Blood 125 mg/dL (60-115)
--- NOTE | 2020-08-10 13:18 | MHC.CM.PN ---
pt lives in a alf called and spoke with analytical research program manager ryann wilson [phone] who explins that pt bobby a mhoyer lift when moved and is a fulkl assist with all her adls and meds pt does not have vna servdeis in the alf .pt will need a chair van when dcd .pt has a guardian jonathan samuels [phone] [place] [id number] plan is for pt to return to alf when dcd
[2020-08-10] MEDS: Dextrose 5 % and Lactated Ring 1,000 ML 50 ML IVCONT (14:30)
--- NOTE | 2020-08-10 16:17 | P.PNIM_ITS ---
Subjective Subjective Date of Service: 08/10/20 Interval History: somnolent but readily arousable ROS limited by encephalopathy but does state she is hungry Review of Systems ROS unreliable Physical Exam Vital Signs: Vital Signs: Vital Signs Temp Pulse Resp BP Pulse Ox 08/10/20 15:54 98.3 F 71 20 151/87 H 98 08/10/20 11:07 97.3 F 54 20 122/78 99 08/10/20 07:41 96.7 F L 68 20 125/69 100 08/10/20 04:00 97.0 F 119 H 18 123/65 97 08/09/20 23:51 97.6 F 69 18 140/78 H 93 08/09/20 19:19 98 F 63 18 111/66 97 08/09/20 18:58 98.2 F 77 18 174/68 H 97 Body Mass Index 28.8 Const: Orientation/consciousness: oriented to person Limitations: altered mental status (somnolent but arousable) Resp: Effort & Inspection: normal respiratory effort Auscultation: clear to auscultation bilaterally Cardio: Rate: regular rate Rhythm: regular rhythm GI: Palpation (GI): Soft to palpation and nontender Neuro: General: oriented to person and moves all extremities Psych: Affect: Other affect and mood findings present (restricted affect) Objective Data Current Medications Generic Name Dose Route Start Last Admin Trade Name Reganq PRN Reason Stop Dose Admin Acetaminophen 650 mg 08/08/20 21:07 Acetaminophen 325 Mg Tablet PO Q6H PRN Pain, Mild (Pain Scale 1-3) Atorvastatin Calcium 10 mg 08/09/20 21:00 08/09/20 22:13 Atorvastatin Calcium 10 Mg Tablet PO Not Given BEDTIME [facility] Diclofenac Sodium 50 mg 08/08/20 21:07 08/10/20 09:07 Diclofenac Sodium Delayed Rel 50 Mg Tablet.Dr PO Not Given BID LISSA Docusate Sodium 100 mg 08/08/20 21:07 08/10/20 09:07 Docusate Sodium 100 Mg Capsule PO Not Given BID [facility] Enoxaparin Sodium 40 mg 08/09/20 20:00 08/09/20 22:12 Enoxaparin Sodium 40 Mg/0.4 Ml Syringe SUBCUT 40 mg Q24H LISSA Administration Dextrose/Lactated Ringer's 1,000 mls @ 50 mls/hr 08/08/20 21:45 08/10/20 14:30 D5lr IVCONT 50 mls/hr .Q20H LISSA Administration Valproic Acid 250 mg/ Dextrose 52.5 mls @ 52.5 mls/hr 08/09/20 18:00 08/10/20 14:29 IV Infused Q6H LISSA Infusion Non-Formulary Medication 1 drop 08/08/20 21:07 Olopatadine EYE-BOTH BID LISSA Ondansetron HCl 4 mg 08/08/20 21:07 Ondansetron Hcl 4 Mg/2 Ml Vial IVPUSH Q8H PRN Nausea and Vomiting Pharmacy Consult 1 each 08/08/20 17:44 Consult Rx Perform Med Rec MISCELLANE ONCE PRN Consult order Sodium Chloride 3 ml 08/09/20 00:00 08/10/20 14:30 0.9 % Sodium Chloride Flush 3 Ml Syringe IVFLUSH 3 ml QSHIFT LISSA Administration Labs CBC & Chem 7: 08/10/20 05:01 08/10/20 05:01 Labs: Laboratory Results - last 24 hr 08/09/20 08/09/20 08/10/20 05:42 20:53 05:01 MCV 105.4 H MCH 31.3 MCHC 29.7 L RDW 15.1 Plt Count 90 L MPV 10.9 Immature Gran % (Auto) 0.3 Neut % (Auto) 45.9 Lymph % (Auto) 39.6 [place] % (Auto) 11.1 H Eos % (Auto) 2.8 Baso % (Auto) 0.3 Lymph # (Auto) 1.3 [place] # (Auto) 0.4 Eos # (Auto) 0.1 Baso # (Auto) 0.0 Abs Immat Gran (auto) 0.01 Absolute Neuts (auto) 1.5 L Absolute Nucleated RBC 0.000 Nucleated RBC % (auto) 0.0 Anion Gap Estim Creat Clear Calc Estimated GFR POC Glucose 93 Random Glucose Estimat Average Glucose 140 Hemoglobin A1c % 6.5 Calcium 08/10/20 08/10/20 08/10/20 05:01 07:20 11:46 MCV MCH MCHC RDW Plt Count MPV Immature Gran % (Auto) Neut % (Auto) Lymph % (Auto) [place] % (Auto) Eos % (Auto) Baso % (Auto) Lymph # (Auto) [place] # (Auto) Eos # (Auto) Baso # (Auto) Abs Immat Gran (auto) Absolute Neuts (auto) Absolute Nucleated RBC Nucleated RBC % (auto) Anion Gap 10 L Estim Creat Clear Calc 62.9 Estimated GFR > 60 POC Glucose 105 125 H Random Glucose 99 Estimat Average Glucose Hemoglobin A1c % Calcium 8.5 Microbiology Microbiology Results: Microbiology 08/08/20 12:44 Blood - Venous Blood Culture - Preliminary No growth after 48 hours. 08/08/20 12:37 Blood - Venous Blood Culture - Preliminary No growth after 48 hours. Progress Note: A&P (1) Acute encephalopathy: Status: Acute Assessment and Plan: hospital d#3 75yo F with TBI, resident of [facility], admitted for unresponsiveness and facial droop which resolved prior to arrival in ED # acute encephalopathy - reviewed recent admission to [facility] 07/26[facility]07[facility]28[facility]20 with similar presentation, MRI negative for acute CVA - Neurology consult pending - [employer] KITCHEN MANAGER consult appreciated: ground NDD2 solids, thin liquids # hypothermia - resolved, normal TSH, no signs of infection, SARS-CoV2 negative # DM2 - well-controlled, A1c 6.5 # mood disorder - continue valproate # VTE ppx - LMWH
[2020-08-10 16:48] LABS: Glucose, Whole Blood 124 mg/dL (60-115)
--- NOTE | 2020-08-10 17:45 | P.CNNE_ITS ---
History of Present Illness Data of Consult Primary Care Provider: Geovanna Manning MD HPI Reason for consult: Syncope versus seizure. Mentally challenged This is a 75-year-old longterm resident who was mentally challenged and was admitted to [facility] 2 weeks ago with loss of consciousness and had a complete workup which was negative. She was sent back to the longterm where she has limited function. She is now admitted with another episode of being found unresponsive. No tongue biting or incontinence. No witnessed seizure activity. The patient appears to be back to her baseline which is very limited and complains of some pain in her right leg and says that she fell down. She is not a reliable historian. Review of Systems Eyes: Eyes: Reports no additional eye complaints ENT: Reports system reviewed and no additional complaints, except as documented and Reports Normal hearing present Cardiovascular: Cardiovascular: Reports no additional cardiovascular complaints Respiratory: Respiratory: Reports no additional respiratory complaints Gastrointestinal: Gastrointestinal: Reports no additional gastrointestinal complaints Musculoskeletal: Musculoskeletal: Reports no additional musculoskeletal complaints Integumentary/Breasts: Skin/Breast: Reports system reviewed and no additional complaints, except as docu Neurologic: Reports as per HPI, Reports Normal hearing present and Reports Abnormal speech present Psychiatric: Psychiatric: Reports as per HPI Endocrine: Endocrine: Reports no additional endocrine complaints Hematologic/Lymphatic: Hematologic/Lymphatic: Reports no additional hematologic/lymphatic complaints Allergic/Immunologic: Allergic/Immunologic: Reports no additional allergic/im munologic complaints [facility] Past Medical History Medical History (Updated 08/10/20 @ 17:50 by Lokesh Menezes MD) CKD (chronic kidney disease) COPD (chronic obstructive pulmonary disease) Diabetes 1.5, managed as type 2 GERD (gastroesophageal reflux disease) High cholesterol Hypertension Schizophrenia TBI (traumatic brain injury) Ulcer, pressure Functional capacity: wheelchair bound Surgical History Surgical History (Updated 08/08/20 @ 19:54 by Gabriella Gutierrez NP) H/O cataract removal with insertion of prosthetic lens Social History Social History Household Members: Other Household Members Other:: longterm Housing: Other Housing Other:: longterm Smoking Status: Never smoker Use of substances other than those prescribed or required for medical reasons: Unable to respond Currently Displaying Signs/Symptoms of Drug Intoxication Withdrawal: No Advance Directives: No Advance Directives Information Provided: Yes Do you have thoughts of harming others: None Do you have a plan to hurt others: No Plan Recently lost weight without trying: No service: No Meds Allergies Allergy/AdvReac Type Severity Reaction Status Date / Time No Known Allergies Allergy Unverified 07/15/20 19:51 [No Known Allergies*] Home Medications Medication Instructions Recorded Confirmed Type Depakote Sprinkles 1,000 mg PO BEDTIME 08/08/20 08/08/20 History collagenase clostridium histo. TOPICAL BEDTIME 08/08/20 History [Santyl] diclofenac sodium 1 tab PO BID 08/08/20 08/08/20 History docusate sodium [Docu] PO BID 08/08/20 History erythromycin OPHTHALMIC (EYE) 08/08/20 History glipizide 1 tab PO DAILY 08/08/20 08/08/20 History magnesium hydroxide [Milk Of PO PRN 08/08/20 History Magnesia Concentrated] metformin 1 tab PO DAILY 08/08/20 08/08/20 History nitrofurantoin monohyd/m-cryst 100 mg PO DAILY 08/08/20 08/08/20 History [Macrobid] olopatadine [Patanol] 1 drp OPHTHALMIC (EYE) BID 08/08/20 08/08/20 History prednisolone acetate drp OPHTHALMIC (EYE) DAILY 08/08/20 History risperidone mg PO BID 08/08/20 History sennosides [senna] mg PO BEDTIME 08/08/20 History simvastatin 1 tab PO BEDTIME 08/08/20 08/08/20 History trazodone 12.5 mg PO PRN 08/08/20 History Physical Exam Vital Signs: Vital Signs: Vital Signs Temp Pulse Resp BP Pulse Ox 08/10/20 15:54 98.3 F 71 20 151/87 H 98 08/10/20 11:07 97.3 F 54 20 122/78 99 08/10/20 07:41 96.7 F L 68 20 125/69 100 08/10/20 04:00 97.0 F 119 H 18 123/65 97 08/09/20 23:51 97.6 F 69 18 140/78 H 93 08/09/20 19:19 98 F 63 18 111/66 97 08/09/20 18:58 98.2 F 77 18 174/68 H 97 Body Mass Index 28.8 Const: General: cooperative, comfortable, no acute distress, well developed, alert and awake Nutritional Appearance: well nourished Orientation/consciousness: oriented to person Limitations: no limitations HENMT: Head: Yes normal to inspection, Yes normocephalic and Yes atraumatic Ears: hearing grossly normal bilaterally General nose exam: Normal external nose present Face and sinus: Yes normal facial exam Mouth: Normal oral and palatal mucosa present Eyes: General: appearance normal, both eyes and all related structures Visual Marroquin: normal visual marroquin by confrontation Alignment and Position: alignment normal Periorbital: periorbital findings normal Eyelids: Yes eyelids normal Conjunctivae: conjunctivae normal Sclerae: sclerae normal Corneas: corneas normal Pupils: Equal, round and reactive pupils present a nd Pupil accommodation reflex normal EOM: EOMs intact bilaterally Direct Ophthalmoscopy: normal light reflex Neck: Neck: Yes normal visual inspection, Yes full ROM and Yes no meningeal signs Thyroid: Thyroid normal Carotids: normal carotid upstroke and bounding pulses Chest: Chest palpation & inspection: normal inspection of the chest Resp: Effort & Inspection: normal respiratory effort Auscultation: clear to auscultation bilaterally Cardio: Rate: regular rate Rhythm: regular rhythm Heart sounds: S1 normal heart sound present and S2 normal heart sound present Peripheral pulses: Peripheral pulses 2+ throughout GI: Inspection: Yes normal to inspection Percussion: Yes normal to percussion Auscultation: normal bowel sounds Rectal Exam - Female: deferred Back/Spine/Pelvis: Cervical Spine: normal cervical lordosis and cervical ROM normal Thoracic/Lumbar Spine: thoracic and lumbar spine normal to inspection Skin: General skin exam: no rashes or lesions noted Neuro: Other: She appears to have atrophy of the anterior tibial muscles bilaterally and partial foot drop right greater than left. Her speech is somewhat thick and slurred difficult to understand. She has divergent strabismus. Gait was not tested. General: oriented to person, tone normal, moves all extremities, Normal light touch and pain sensation, no meningeal signs, CN's II-XI intact bilaterally, normal sensation to monofilament, deep tendon reflexes 2+ bilaterally and Unable to assess gait Cranial nerves: Yes CN's II-XII intact bilaterally, Yes Equal, round and reactive pupils present, Yes Bilaterally intact EOM present, Yes Nystagmus not present, Yes Normal facial strength present, Yes Midline tongue present, Yes Normal gag reflex present, Yes Symmetric palate elevation present, Yes Normal hearing present and Yes Ability to bilaterally rotate head present Cognition (Neuro): abnormal cognition Speech: Abnormal speech present and Other speech findings present (Neuro) Gait exam (Neuro): Normal gait present and Unable to assess gait Motor exam (neuro): Pronator motor function not present, no tremor noted, no ast erixis, Motor fasciculations not present, Normal motor muscle tone present throughout, Motor abnormalities not present and Abnormal motor strength present Sensory Exam: Bilaterally intact graphesthesia Deep tendon reflexes (DTR's): Right triceps reflex intensity grade: 2+, Left triceps reflex intensity grade: 2+, Rt Biceps (C5, C6): 2+, Left biceps reflex intensity grade: 2+, Right brachioradialis reflex intensity grade: 2+, Left brachioradialis reflex intensity grade: 2+, Right patellar reflex intensity grade: 2+, Left patellar reflex intensity grade: 2+, Right ankle reflex intensity grade: 2+ and Left ankle reflex intensity grade: 2+ Plantar Reflex Responses: downgoing: right, left and bilateral Pupils: Normal pupillary reactivity/response: bilateral Extrem: General: Yes normal to inspection, Yes normal exam except as noted and Yes no pedal edema Psych: Appearance: grossly normal Mental Status: mental status grossly normal Speech and movement: Normal speech and movement present and Clear speech present Affect: normal affect Attitude: cooperative Thought process: Normal thought process present Results Labs CBC & Chem 7: 08/10/20 05:01 08/10/20 05:01 Labs: Short CBC 08/10/20 Range/Units 05:01 WBC 3.2 L (4.8-10.8) X10*3/uL Hgb 10.5 L (12.0-16.0) g/dl Hct 35.3 L (37-47) % Plt Count 90 L (160-400) X10*3/uL BMP 08/10/20 05:01 Sodium 140 Potassium 4.4 Chloride 106 Carbon Dioxide 28 BUN 11 Creatinine 0.76 Calcium 8.5 Microbiology Microbiology Results: Microbiology 08/08/20 12:44 Blood - Venous Blood Culture - Preliminary No growth after 48 hours. 08/08/20 12:37 Blood - Venous Blood Culture - Preliminary No growth after 48 hours. Assessment and Plan (1) Seizure disorder: Problem details: Possible seizure versus syncope Status: Acute EEG, check for orthostatic hypotension (2) Acute encephalopathy: Status: Acute Metabolic workup (3) TBI (traumatic brain injury): Status: Acute (4) Acute alteration in mental status: Status: Acute
--- NOTE | 2020-08-10 17:50 | PM.NEUROCN ---
History of Present Illness Data of Consult Primary Care Provider: Geovanna Manning MD HPI Reason for consult: Reason for consult: Syncope versus seizure. Mentally challenged This is a 75-year-old senior care resident who was mentally challenged and was admitted to [facility] 2 weeks ago with loss of consciousness and had a complete workup which was negative. She was sent back to the senior care where she has limited function. She is now admitted with another episode of being found unresponsive. No tongue biting or incontinence. No witnessed seizure activity. The patient appears to be back to her baseline which is very limited and complains of some pain in her right leg and says that she fell down. She is not a reliable historian. Review of Systems ENT: Reports Normal hearing present Neurologic: Reports as per HPI, Reports Normal hearing present and Reports Abnormal speech present [facility] Past Medical History Medical History (Updated 08/10/20 @ 17:50 by Lokesh Menezes MD) CKD (chronic kidney disease) COPD (chronic obstructive pulmonary disease) Diabetes 1.5, managed as type 2 GERD (gastroesophageal reflux disease) High cholesterol Hypertension Schizophrenia TBI (traumatic brain injury) Ulcer, pressure Functional capacity: wheelchair bound Surgical History Surgical History (Updated 08/08/20 @ 19:54 by Gabriella Gutierrez NP) H/O cataract removal with insertion of prosthetic lens Social History Social History Household Members: Other Household Members Other:: senior care Housing: Other Housing Other:: senior care Smoking Status: Never smoker Use of substances other than those prescribed or required for medical reasons: Unable to respond Currently Displaying Signs/Symptoms of Drug Intoxication Withdrawal: No Advance Directives: No Advance Directives Information Provided: Yes Do you have thoughts of harming others: None Do you have a plan to hurt others: No Plan Recently lost weight without trying: No service: No Meds Allergies Allergy/AdvReac Type Severity Reaction Status Date / Time No Known Allergies Allergy Unverified 07/15/20 19:51 [No Known Allergies*] Home Medications Medication Instructions Recorded Confirmed Type Depakote Sprinkles 1,000 mg PO BEDTIME 08/08/20 08/08/20 History collagenase clostridium histo. TOPICAL BEDTIME 08/08/20 History [Santyl] diclofenac sodium 1 tab PO BID 08/08/20 08/08/20 History docusate sodium [Docu] PO BID 08/08/20 History erythromycin OPHTHALMIC (EYE) 08/08/20 History glipizide 1 tab PO DAILY 08/08/20 08/08/20 History magnesium hydroxide [Milk Of PO PRN 08/08/20 History Magnesia Concentrated] metformin 1 tab PO DAILY 08/08/20 08/08/20 History nitrofurantoin monohyd/m-cryst 100 mg PO DAILY 08/08/20 08/08/20 History [Macrobid] olopatadine [Patanol] 1 drp OPHTHALMIC (EYE) BID 08/08/20 08/08/20 History prednisolone acetate drp OPHTHALMIC (EYE) DAILY 08/08/20 History risperidone mg PO BID 08/08/20 History sennosides [senna] mg PO BEDTIME 08/08/20 History simvastatin 1 tab PO BEDTIME 08/08/20 08/08/20 History trazodone 12.5 mg PO PRN 08/08/20 History Physical Exam Vital Signs: Vital Signs: Vital Signs Temp Pulse Resp BP Pulse Ox 08/10/20 15:54 98.3 F 71 20 151/87 H 98 08/10/20 11:07 97.3 F 54 20 122/78 99 08/10/20 07:41 96.7 F L 68 20 125/69 100 08/10/20 04:00 97.0 F 119 H 18 123/65 97 08/09/20 23:51 97.6 F 69 18 140/78 H 93 08/09/20 19:19 98 F 63 18 111/66 97 08/09/20 18:58 98.2 F 77 18 174/68 H 97 Body Mass Index 28.8 Neuro: Cranial nerves: Yes Normal hearing present Speech: Abnormal speech present Results Labs CBC & Chem 7: 08/10/20 05:01 08/10/20 05:01 Labs: Short CBC 08/10/20 Range/Units 05:01 WBC 3.2 L (4.8-10.8) X10*3/uL Hgb 10.5 L (12.0-16.0) g/dl Hct 35.3 L (37-47) % Plt Count 90 L (160-400) X10*3/uL BMP 08/10/20 05:01 Sodium 140 Potassium 4.4 Chloride 106 Carbon Dioxide 28 BUN 11 Creatinine 0.76 Calcium 8.5 Microbiology Microbiology Results: Microbiology 08/08/20 12:44 Blood - Venous Blood Culture - Preliminary No growth after 48 hours. 08/08/20 12:37 Blood - Venous Blood Culture - Preliminary No growth after 48 hours. Assessment and Plan (1) Seizure disorder: Problem details: Possible seizure versus syncope Status: Acute Recommend EEG. Check for orthostatic hypotension. Cardiac monitoring. (2) Acute encephalopathy: Status: Acute Metabolic workup. Rule out UTI (3) TBI (traumatic brain injury): Status: Acute (4) Acute alteration in mental status: Status: Acute
[2020-08-10 21:14] LABS: Glucose, Whole Blood 90 mg/dL (60-115)
[2020-08-10] MEDS: Enoxaparin Sodium 40 MG/0.4 ML SYRINGE SUBCUT (21:28)
[2020-08-10] MEDS: Atorvastatin Calcium 10 MG TABLET PO (21:31)
[2020-08-10] MEDS: Diclofenac Sodium Delayed Rel 50 MG TABLET.DR PO (21:31)
[2020-08-11] VITALS (9 sets, daily range): BP systolic 100–145; BP diastolic 55–80; PULSE 57–89; RESP 18–20; TEMP 36–36.6; O2SAT 90–100
[2020-08-11] MEDS: Valproic Acid (as Sodium Salt) 250 MG in Dextrose 5 % 50 ML 52.5 MG IV (06:42)
--- NOTE | 2020-08-11 07:36 | PC.NURSE ---
[id number] shift: Patient's temperature 96 degrees at 2100. Patient has a bear hugger present at bedside. Notified Dr. Deleon of patient's temperature. Per , apply bear hugger/warming blanket, monitor temperature. 2200 temperature 98.8 orally, updated, bear hugger stopped. Continue to monitor patient's temperature.
[2020-08-11 07:46] LABS: Glucose, Whole Blood 106 mg/dL (60-115)
[2020-08-11 11:10] LABS: Glucose, Whole Blood 167 mg/dL (60-115)
--- NOTE | 2020-08-11 12:26 | MHC.CLN ---
F/U PO INTAKE 100% TODAY DIET RX: DM M/S-WILL ADD 1500 INSIDE SALES ENGINEER 08/11 REC M/S DIET CHIN AND GLUCERNA IN PLACE FOR WOUND HEALING FOLLOWING
[2020-08-11] MEDS: Valproic Acid (as Sodium Salt) 250 MG in Dextrose 5 % 50 ML 52 MG IV ×2 (12:33→18:12)
--- NOTE | 2020-08-11 15:11 | PM.IMPN ---
Subjective Subjective Date of Service: 08/11/20 Interval History: more awake today threatened to hit the technician automatic so EEG canceled ROS limited by encephalopathy/TBI Review of Systems ROS unreliable Physical Exam Vital Signs: Vital Signs: Vital Signs Temp Pulse Resp BP Pulse Ox 08/11/20 11:53 96.9 F 77 20 135/78 97 08/11/20 08:51 57 100/59 L 08/11/20 07:57 62 117/64 08/11/20 07:24 97.0 F 67 18 133/73 100 08/11/20 03:40 97.8 F 62 18 105/55 L 100 08/11/20 00:00 97.9 F 69 18 101/67 98 08/10/20 23:43 99.0 F 08/10/20 22:35 98.8 F 08/10/20 21:01 96.0 F L 08/10/20 19:48 58 18 102/69 100 08/10/20 15:54 98.3 F 71 20 151/87 H 98 Body Mass Index 28.8 Const: Orientation/consciousness: oriented to person Limitations: altered mental status Resp: Effort & Inspection: normal respiratory effort Auscultation: clear to auscultation bilaterally Cardio: Rate: regular rate Rhythm: regular rhythm GI: Palpation (GI): Soft to palpation and nontender Neuro: General: oriented to person Psych: Speech and movement: Slowed speech present (Psych) Affect: Blunted affect present Objective Data Current Medications Generic Name Dose Route Start Last Admin Trade Name Reganq PRN Reason Stop Dose Admin Acetaminophen 650 mg 08/08/20 21:07 Acetaminophen 325 Mg Tablet PO Q6H PRN Pain, Mild (Pain Scale 1-3) Atorvastatin Calcium 10 mg 08/09/20 21:00 08/10/20 21:31 Atorvastatin Calcium 10 Mg Tablet PO 10 mg BEDTIME LISSA Administration Diclofenac Sodium 50 mg 08/08/20 21:07 08/11/20 09:00 Diclofenac Sodium Delayed Rel 50 Mg Tablet.Dr PO Not Given BID LISSA Docusate Sodium 100 mg 08/08/20 21:07 08/11/20 09:02 Docusate Sodium 100 Mg Capsule PO Not Given BID LISSA Enoxaparin Sodium 40 mg 08/09/20 20:00 08/10/20 21:28 Enoxaparin Sodium 40 Mg/0.4 Ml Syringe SUBCUT 40 mg Q24H LISSA Administration Dextrose/Lactated Ringer's 1,000 mls @ 50 mls/hr 08/08/20 21:45 08/11/20 10:52 D5lr IVCONT Not Given .Q20H LISSA Valproic Acid 250 mg/ Dextrose 52.5 mls @ 52.5 mls/hr 08/09/20 18:00 08/11/20 14:21 IV Infused Q6H LISSA Infusion Non-Formulary Medication 1 drop 08/08/20 21:07 Olopatadine EYE-BOTH BID LISSA Ondansetron HCl 4 mg 08/08/20 21:07 Ondansetron Hcl 4 Mg/2 Ml Vial IVPUSH Q8H PRN Nausea and Vomiting Pharmacy Consult 1 each 08/08/20 17:44 Consult Rx Perform Med Rec MISCELLANE ONCE PRN Consult order Sodium Chloride 3 ml 08/09/20 00:00 08/11/20 09:00 0.9 % Sodium Chloride Flush 3 Ml Syringe IVFLUSH Not Given QSHIFT [facility] Labs CBC & Chem 7: 08/10/20 05:01 08/10/20 05:01 Labs: Laboratory Results - last 24 hr 08/10/20 08/10/20 08/11/20 16:40 21:04 07:23 POC Glucose 124 H 90 106 08/11/20 11:03 POC Glucose 167 H Microbiology Microbiology Results: Microbiology 08/08/20 12:44 Blood - Venous Blood Culture - Preliminary No growth after 48 hours. 08/08/20 12:37 Blood - Venous Blood Culture - Preliminary No growth after 48 hours. Progress Note: A&P (1) Acute encephalopathy: Status: Acute Assessment and Plan: hospital d#4 75yo F with TBI, resident of senior living, admitted for unresponsiveness and facial droop which resolved prior to arrival in ED # acute encephalopathy - also had recent admission to [facility] 07/26-07/28/20 with similar presentation, MRI negative for acute CVA - appreciate Neurology consult. unfortunately pt refusing EEG. - per BOOTH CLEANER, ground NDD2 solids, thin liquids - will contact senior living to get a sense of her baseline mental status # hypothermia - resolved, normal TSH, no signs of infection, SARS-CoV2 negative # DM2 - well-controlled, A1c 6.5 # mood disorder - continue valproate # VTE ppx - LMWH # dispo - possibly back to senior living tomorrow
[2020-08-11 20:15] LABS: Glucose, Whole Blood 122 mg/dL (60-115)
[2020-08-11] MEDS: Dextrose 5 % and Lactated Ring 1,000 ML 50 ML IVCONT (20:44)
[2020-08-11] MEDS: Enoxaparin Sodium 40 MG/0.4 ML SYRINGE SUBCUT (20:45)
[2020-08-11] MEDS: Atorvastatin Calcium 10 MG TABLET PO (20:45)
[2020-08-11] MEDS: 0.9 % Sodium Chloride Flush 3 ML SYRINGE IVFLUSH ×2 (20:45)
[2020-08-11] MEDS: Diclofenac Sodium Delayed Rel 50 MG TABLET.DR PO (20:45)
[2020-08-12] MEDS: Valproic Acid (as Sodium Salt) 250 MG in Dextrose 5 % 50 ML 52 MG IV ×4 (01:12→17:37)
[2020-08-12 03:02] VITALS: BP 123/75; PULSE 60; RESP 19; TEMP 36.1; O2SAT 95
[2020-08-12] MEDS: Acetaminophen 325 MG TABLET 650 MG PO (04:26)
[2020-08-12 07:25] VITALS: BP 128/72; PULSE 63; RESP 18; TEMP 36.4; O2SAT 96
[2020-08-12] MEDS: Docusate Sodium 100 MG CAPSULE PO ×2 (07:42→21:35)
[2020-08-12] MEDS: 0.9 % Sodium Chloride Flush 3 ML SYRINGE IVFLUSH ×2 (07:42→15:55)
[2020-08-12] MEDS: Diclofenac Sodium Delayed Rel 50 MG TABLET.DR PO ×2 (07:42→21:35)
[2020-08-12 08:30] LABS: Glucose, Whole Blood 131 mg/dL (60-115)
--- NOTE | 2020-08-12 10:28 | MHC.SLORD ---
[address] [address] Speech & Hearing [phone] METEOROLOGICAL AIDE attempted to see patient this morning. However, PO trials were not appropriate due to patient's lethargic states. RN reported no difficulties with current diet textures, GROUND/MECH ALTERED (NDD2) solids and THIN liquids. Pills to be crushed in puree. Name: Francine Rob Date of : 1945 Age: 75 Date of Registration: 08/08/20 Speech Language Pathology Order Status: Patient Not Seen
[2020-08-12 11:11] LABS: Glucose, Whole Blood 128 mg/dL (60-115)
[2020-08-12 11:41] VITALS: BP 116/72; PULSE 61; RESP 20; TEMP 36.4; O2SAT 97
--- NOTE | 2020-08-12 14:06 | P.PNIM_ITS ---
Subjective Subjective Date of Service: 08/12/20 Interval History: somnolent but arousable refusing EEG again ROS limited by encephalopathy/TBI Review of Systems ROS unreliable Physical Exam Vital Signs: Vital Signs: Vital Signs Temp Pulse Resp BP Pulse Ox 08/12/20 11:41 97.6 F 61 20 116/72 97 08/12/20 07:25 97.5 F 63 18 128/72 96 08/12/20 03:02 97.0 F 60 19 123/75 95 08/11/20 23:09 96.8 F 69 19 141/78 H 92 08/11/20 19:10 96.8 F 80 19 141/77 H 90 L 08/11/20 15:46 97.0 F 89 20 145/80 H 93 Body Mass Index 28.8 Const: Orientation/consciousness: oriented to person Limitations: altered mental status Resp: Effort & Inspection: normal respiratory effort Auscultation: clear to auscultation bilaterally Cardio: Rate: regular rate Rhythm: regular rhythm GI: Palpation (GI): Soft to palpation and nontender Neuro: General: oriented to person Psych: Speech and movement: Slowed speech present (Psych) Affect: Blunted affect present Objective Data Current Medications Generic Name Dose Route Start Last Admin Trade Name Freq PRN Reason Stop Dose Admin Acetaminophen 650 mg 08/08/20 21:07 08/12/20 04:26 Acetaminophen 325 Mg Tablet PO 650 mg Q6H PRN Administration Pain, Mild (Pain Scale 1-3) Atorvastatin Calcium 10 mg 08/09/20 21:00 08/11/20 20:45 Atorvastatin Calcium 10 Mg Tablet PO 10 mg BEDTIME LISSA Administration Diclofenac Sodium 50 mg 08/08/20 21:07 08/12/20 07:42 Diclofenac Sodium Delayed Rel 50 Mg Tablet.Dr PO 50 mg BID LISSA Administration Docusate Sodium 100 mg 08/08/20 21:07 08/12/20 07:42 Docusate Sodium 100 Mg Capsule PO 100 mg BID LISSA Administration Enoxaparin Sodium 40 mg 08/09/20 20:00 08/11/20 20:45 Enoxaparin Sodium 40 Mg/0.4 Ml Syringe SUBCUT 40 mg Q24H LISSA Administration Valproic Acid 250 mg/ Dextrose 52.5 mls @ 52.5 mls/hr 08/09/20 18:00 08/12/20 13:34 IV Infused Q6H LISSA Infusion Non-Formulary Medication 1 drop 08/08/20 21:07 Olopatadine EYE-BOTH BID [facility] Ondansetron HCl 4 mg 08/08/20 21:07 Ondansetron Hcl 4 Mg/2 Ml Vial IVPUSH Q8H PRN Nausea and Vomiting Pharmacy Consult 1 each 08/08/20 17:44 Consult Rx Perform Med Rec MISCELLANE ONCE PRN Consult order Sodium Chloride 3 ml 08/09/20 00:00 08/12/20 07:42 0.9 % Sodium Chloride Flush 3 Ml Syringe IVFLUSH 3 ml QSHIFT [facility] Administration Labs CBC & Chem 7: 08/10/20 05:01 08/10/20 05:01 Labs: Laboratory Results - last 24 hr 08/11/20 08/12/20 08/12/20 20:11 07:28 11:08 POC Glucose 122 H 131 H 128 H Microbiology Microbiology Results: Microbiology 08/08/20 12:44 Blood - Venous Blood Culture - Preliminary No growth after 48 hours. 08/08/20 12:37 Blood - Venous Blood Culture - Preliminary No growth after 48 hours. Progress Note: A&P (1) Acute encephalopathy: Status: Acute Assessment and Plan: hospital d#5 75yo F with TBI, resident of [facility], admitted for unresponsiveness and facial droop which resolved prior to arrival in ED # acute encephalopathy - also had recent admission to [facility] 07/26-07/28/20 with similar presentation, MRI negative for acute CVA - appreciate Neurology consult. pt still refusing EEG - per CONTROL OFFICER MANAGER, ground NDD2 solids, thin liquids - per [facility], she is often agitated/uncooperative but usually not this somnolent - will check UA/UM/UCx # hypothermia - resolved, normal TSH, no signs of infection, SARS-CoV2 negative # DM2 - well-controlled, A1c 6.5 # mood disorder - continue valproate # VTE ppx - LMWH # dispo - possibly back to [facility] tomorrow
[2020-08-12 14:14] LABS: Glucose Urine UA NEG (NEG); Leukocyte Esterase Urine NEG (NEG); Nitrite Urine NEG (NEG); Specific Gravity - Urine 1.015 (1.005-1.025); Urine Blood TRACE (NEG); Urine Ketones NEG (NEG); Urine Protein NEG (NEG-TRACE)
[2020-08-12 14:15] LABS: Appearance Urine HAZY; Color Urine YELLOW
[2020-08-12 14:26] LABS: Squamous Epithelial Cell Urine 2+ /LPF; WBC Urine 0-2 /HPF (0-4)
[2020-08-12 15:18] VITALS: BP 102/58; PULSE 58; RESP 18; TEMP 36.3; O2SAT 95
[2020-08-12 16:15] LABS: Glucose, Whole Blood 123 mg/dL (60-115)
[2020-08-12 18:56] VITALS: BP 124/76; PULSE 69; RESP 19; TEMP 36.1; O2SAT 92
[2020-08-12 21:20] LABS: Glucose, Whole Blood 102 mg/dL (60-115)
[2020-08-12] MEDS: Atorvastatin Calcium 10 MG TABLET PO (21:35)
[2020-08-12] MEDS: Enoxaparin Sodium 40 MG/0.4 ML SYRINGE SUBCUT (21:35)
[2020-08-13] MEDS: 0.9 % Sodium Chloride Flush 3 ML SYRINGE IVFLUSH ×2 (00:08→08:36)
[2020-08-13] MEDS: Valproic Acid (as Sodium Salt) 250 MG in Dextrose 5 % 50 ML 52.5 MG IV ×3 (00:09→12:45)
[2020-08-13 00:10] VITALS: BP 137/84; PULSE 57; RESP 20; TEMP 36.3; O2SAT 95
[2020-08-13 03:43] VITALS: BP 135/64; PULSE 50; RESP 18; TEMP 36.4; O2SAT 98
[2020-08-13 07:34] LABS: Glucose, Whole Blood 85 mg/dL (60-115)
[2020-08-13 07:38] VITALS: BP 128/94; PULSE 80; RESP 18; TEMP 36.4; O2SAT 95
[2020-08-13] MEDS: Diclofenac Sodium Delayed Rel 50 MG TABLET.DR PO (08:36)
[2020-08-13] MEDS: Docusate Sodium 100 MG CAPSULE PO (08:36)
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
[2020-08-13 11:42] LABS: Glucose, Whole Blood 154 mg/dL (60-115)
--- NOTE | 2020-08-13 12:13 | MHC.CM.PN ---
pt returning to senior living at 2;00 CONFIRMED SAME WITH PROGRAM DIRECTORJOE AQUINO [phone] ,PT HAS WHEEL CHAIR VAN HERE CHAIR WILL BE BOOKED TO ,TRANSFER PT
[2020-08-13 12:15] VITALS: BP 177/79; PULSE 72; RESP 18; TEMP 36.4; O2SAT 97
--- NOTE | 2020-08-13 12:43 | MHC.CM.PN ---
ppts guardian jonathan samuels contacted and notified of dc ,imm imfo given he requested a copy not be sent he was looking for a medical update pts rn was asked to contact him phone number given
== END 2020-08-13 14:36 | disposition other institution (70) | DRG 72 ==
LOC: HO.ED 18:02 → HO.IMC 19:10
PROVIDERS: Nurse Practitioner Acute Care; Physician Assistant; Admitting Provider Family Medicine; Emergency Provider Emergency Medicine; PCP Family Medicine; Visit Provider Family Medicine
DX: G93.40 Encephalopathy, unspecified (principal); I12.9 Hypertensive chronic kidney disease with stage 1 through stage 4 chronic kidney disease, or unspecified chronic kidney disease; E11.22 Type 2 diabetes mellitus with diabetic chronic kidney disease; E87.5 Hyperkalemia; D63.1 Anemia in chronic kidney disease; N18.9 Chronic kidney disease, unspecified; R68.0 Hypothermia, not associated with low environmental temperature; E78.5 Hyperlipidemia, unspecified; D69.6 Thrombocytopenia, unspecified; Z20.828 Contact with and (suspected) exposure to other viral communicable diseases; Z87.440 Personal history of urinary (tract) infections; Z87.820 Personal history of traumatic brain injury; Z79.84 Long term (current) use of oral hypoglycemic drugs; Z79.899 Other long term (current) drug therapy
CPT/HCPCS: 36415; 70450; 71045; 71275; 80048; 80076; 80164; 81001; 82728; 82947; 83036; 83605; 83615; 83690; 83735; 83880; 84145; 84443; 84484; 85025; 85610; 87040; 87086; 87633; 92526; 92610; 93005; 96360; 99223; 99285; J1650